=== PATIENT | female | born 1985 | race African-American/Black ===

== ENCOUNTER 2022-03-03 15:35 | Emergency (ER) | payer MEDICAID ==
[~2022-03-03] VITALS: Ht 162.6 cm; Wt 59.0 kg
[2022-03-03 15:43] VITALS: BP 125/87
== END 2022-03-03 18:31 | disposition left against medical advice (07) ==
LOC: ER 15:49
DX: Z53.21 Procedure and treatment not carried out due to patient leaving prior to being seen by health care provider (principal)